=== PATIENT | female | born 1960 | race Caucasian/White ===

== ENCOUNTER 2017-02-19 10:28 | Emergency (ER) | payer OTHER ==
[~2017-02-19] VITALS: Ht 157.5 cm; Wt 103.2 kg
[2017-02-19] MEDS ORDERED: HYDR-309 PO (11:03)
[2017-02-19] MEDS ORDERED: ATEN100T PO (11:03)
[2017-02-19] MEDS ORDERED: LISI-662 PO (11:03)
[2017-02-19] MEDS ORDERED: BUPR-93 PO (11:03)
[2017-02-19] MEDS ORDERED: KETOROLAC TROMETHAMINE 10 MG TABLET PO ONE (12:15)
[2017-02-19] MEDS ORDERED: ONDANSETRON HCL 4 MG TABLET PO ONE (12:15)
[2017-02-19 12:45] LABS: INFLUENZA TYPE A NEGATIVE FOR TYPE A (NEGATIVE); INFLUENZA TYPE B NEGATIVE FOR TYPE B (NEGATIVE)
[2017-02-19 13:05] VITALS: BP 139/72
== END 2017-02-19 13:10 | disposition home or self-care (01) ==
LOC: EMS 10:31
DX: B34.9 Viral infection, unspecified (principal); I10 Essential (primary) hypertension; G89.29 Other chronic pain; M54.9 Dorsalgia, unspecified; F17.210 Nicotine dependence, cigarettes, uncomplicated; Z86.19 Personal history of other infectious and parasitic diseases; Z79.899 Other long term (current) drug therapy
CPT/HCPCS: 87804; 99284; Q0162